=== PATIENT | male | born 1950 | race Caucasian/White ===

== ENCOUNTER 2018-04-05 06:09 | Day surgery (SDC) | payer MEDICARE ==
[2018-04-03 11:59] VITALS: BMI 28.7
[2018-04-05] MEDS ORDERED: Phenylephrine 10 mg/ml Inj ONE (06:53)
[2018-04-05] MEDS ORDERED: Lidocaine PF 2% (5 ml) Inj (For Cardiac Arrhy) ONE (06:53)
[2018-04-05] MEDS ORDERED: Iohexol 350mgl/ml 50 ML ONE (06:54)
[2018-04-05] MEDS ORDERED: Iodixanol 320 MG/ML 200 ML BOTTLE IV ONE (06:54)
[2018-04-05] MEDS ORDERED: Nitroglycerin 50mg in D5W 0 MG/0 ML BOTTLE IV ONE (06:54)
[2018-04-05] MEDS ORDERED: Iodixanol 320 MG/ML 100 ML BOTTLE IV ONE (06:54)
[2018-04-05 07:07] VITALS: RESP 18
[2018-04-05 07:07] LABS: BASO # 0.02 K/mm3 (0.0-2.0); BASO % 0.4 % (0.0-3.0); EOS # 0.1 (0.0-0.7); EOS % 2.1 % (1.5-5.0); GRAN # 3.42 (1.4-6.5); GRAN % 59.9 % (50.0-68.0); HEMOGLOBIN 12.9 g/dL (14.0-18.0); LYMPH # 1.7 (1.2-3.4); LYMPH % 29.2 % (22.0-35.0); MEAN CELL VOLUME 88.6 fl (80.0-105.0); MEAN CORPUSCULAR HEMOGLOBIN 30.1 pg (25.0-35.0); MEAN CORPUSCULAR HGB CONC 33.9 g/dl (31.0-37.0); MEAN PLATELET VOLUME 9.8 fl (7.0-11.0); MONO # 0.5 (0.1-0.6); MONO % 8.4 % (1.0-6.0); RBC 4.29 10^6/uL (3.5-6.1); RED CELL DISTRIBUTION WIDTH 13.8 % (11.5-14.5); WHITE BLOOD COUNT 5.7 10^3/ul (4.5-11.0)
[2018-04-05 07:11] LABS: INR 1.01; PARTIAL THROMBOPLASTIN TIME 30.6 Seconds (25.1-36.5); PROTHROMBIN TIME 11.6 SECONDS (9.4-12.5)
[2018-04-05 07:16] LABS: BLOOD UREA NITROGEN 17 mg/dL (7-21); CALCIUM 9.4 mg/dL (8.4-10.5); GFR NON-AFRICAN AMERICAN > 60
[2018-04-05] MEDS ORDERED: Midazolam 2 MG/2 ML VIAL ONE ×2 (08:11→08:18)
[2018-04-05] MEDS ORDERED: Sodium Chloride 0.9% 1,000 ML IV SCH (09:15)
[2018-04-05 09:21] VITALS: TEMP 97.6
--- NOTE | 2018-04-05 09:43 | CARDCATH ---
Copied To: Jorge Alberto Arias MD Attending MD: Jorge Alberto Arias MD PROCEDURE DATE: 04/05/2018 HISTORY: The patient is a 67-year-old male with a history of previous PTCA and acute coronary artery syndrome in the past who presents with an abnormal stress test. His cardiac risk factors include hypertension and hypercholesteremia and is a former smoker. He had a PTCA and stent of an ostial LAD in 2013. Because of the abnormal stress test, a cardiac catheterization was recommended. PROCEDURE: Left heart catheterization with coronary arteriography, left ventriculogram and IVUS of the left main artery and circumflex artery. I performed moderate sedation, which included the presence of an independent trained observer that assisted in monitoring the patient's level of consciousness and physiologic status. After administration of Versed and fentanyl, my intra-service time was 30 minutes. The right femoral artery was cannulated with a 6-Marshallese sheath. There were no complications. The findings on catheterization revealed a left ventricle that contracted normally. Estimated ejection fraction of 60% to 65%. The left main artery revealed irregularities in its proximal portion with an eccentric 30-40% stenoses noted. The LAD revealed a patent stent in its ostium extending into the proximal portion of the LAD. The diagonal vessels revealed diffuse atherosclerosis. The circumflex artery, which was a dominant vessel revealed a 50-60% stenoses in its proximal portion. The RCA was a nondominant vessel and revealed diffuse atherosclerosis. The patient was started on intravenous Angiomax on the fluoroscopic guide. A guiding catheter was placed in the ostium of the left main artery. An 0.014 ATW wire was used to cross the left main artery into the circumflex artery. IVUS was performed of the circumflex artery lesion as well as the left main artery. The proximal circumflex artery stenosis was measured to be 54%. The left main artery cross-sectional area was measured to the 9.5 mm2. No angioplasty was performed. Angio-Seal was used to close the femoral artery site. The patient tolerated the procedure well. In summary, the procedure revealed two-vessel CAD with a patent stent in the proximal LAD as well as a 54% stenoses of the proximal circumflex artery. There was noncritical lesion in the left main artery, which was measured by IVUS to been greater than 9 mm2. LV function is normal. Given these findings, the patient's continued treatment will be medical. We will continue on aspirin. We can stop his Effient. I have discussed with the patient and family the results as well as the need to increase his cardiac risk reduction program. Jorge Alberto Arias MD
[2018-04-05 13:36] VITALS: BP 130/66; PULSE 60; O2SAT 97
--- NOTE | 2018-04-05 19:23 | CARD ---
APPROVED REPORT Date of service: 04/05/2018 EKG Measurement Heart [id number] <Conclusion> Normal sinus rhythm Normal ECG
== END 2018-04-05 14:30 | disposition home or self-care (01) ==
LOC: CATH 06:09
PROVIDERS: ATTEND Internal Medicine Cardiovascular Disease
DX: I25.10 Atherosclerotic heart disease of native coronary artery without angina pectoris (principal); R94.39 Abnormal result of other cardiovascular function study; I10 Essential (primary) hypertension; E78.00 Pure hypercholesterolemia, unspecified; Z87.891 Personal history of nicotine dependence; Z95.5 Presence of coronary angioplasty implant and graft; Z88.8 Allergy status to other drugs, medicaments and biological substances
CPT/HCPCS: 36415; 80048; 85025; 85610; 85730; 86850; 86900; 92978; 93005; 93458; 99152; 99153; C1753; C1760; C1769; C1887; C2629; J0583; J1644; J2250; J3010; J7030; Q9966; Q9967